=== PATIENT | male | born 1995 | race Caucasian/White ===

== ENCOUNTER 2020-05-12 03:00 | Emergency (ER) | payer MEDICAID ==
[~2020-05-12] VITALS: Ht 177.8 cm; Wt 156.5 kg
[2020-05-12 03:05] VITALS: BP 150/100
--- NOTE | 2020-05-12 03:05 | NUR ---
TO BED VIA WHEEL CHAIR
--- NOTE | 2020-05-12 03:20 | NUR ---
CHEIKH SOUZA AT BEDSIDE FOR MEDICAL EVALUATION.
[2020-05-12] MEDS ORDERED: NACL 0.9% 500 ML IV ONE (03:25)
[2020-05-12] MEDS ORDERED: MORPHINE SULFATE 2 MG/ML SYR IM/IVP ONE (03:25)
--- NOTE | 2020-05-12 03:25 | NUR ---
PT TAKEN TO XRAY BY [employer] VIA WHEELCHAIR.
--- NOTE | 2020-05-12 03:34 | NUR ---
Pt returned from Radiology via w/c.
[2020-05-12] MEDS ORDERED: KETAMINE 10 MG/ML UD SYR **ER IVP ONE (03:35)
[2020-05-12] MEDS ORDERED: MIDAZOLAM 2 MG/2 ML VIAL IVP ONE (03:35)
[2020-05-12] MEDS ORDERED: KETAMINE 500 MG/5 ML VIAL ONE (03:57)
--- NOTE | 2020-05-12 04:27 | NUR ---
KETAMINE AND MIDAZOLAM ADMINISTERED BY ER MD FOR CONSCIOUS SEDATION.
--- NOTE | 2020-05-12 04:32 | NUR ---
CONSCIOUS SEDATION PROCEDURE FOR LEFT SHOULDER STARTED
--- NOTE | 2020-05-12 04:40 | NUR ---
SLING APPLIED TO LEFT ARM BY EMT.
--- NOTE | 2020-05-12 04:44 | NUR ---
[employer]IS[employer] PRODUCTION SPECIALIST AT BEDSIDE FOR XRAY VERIFICATION.
--- NOTE | 2020-05-12 05:06 | NUR ---
PT IS AOX4 AND ABLE TO ANSWER ALL QUESTIONS. PT IS BACK TO BASELINE RST SCORE.
[2020-05-12 05:43] VITALS: BP 133/79
--- NOTE | 2020-05-12 05:43 | NUR ---
IV removed, catheter intact and site benign. Applied folded 4x4 gauze and tape to stop bleeding.
--- NOTE | 2020-05-12 05:48 | NUR ---
PROVIDED PT WITH SHOULDER SLING FOR PT'S LEFT SHOULDER. CHECKED PMSC'S BEFORE AND AFTER SLING WAS APPLIED WITHOUT INCIDENT.
== END 2020-05-12 05:43 | disposition home or self-care (01) ==
LOC: MED 03:00
DX: S43.005A Unspecified dislocation of left shoulder joint, initial encounter (principal); X58.XXXA Exposure to other specified factors, initial encounter; Y93.89 Activity, other specified; Y92.89 Other specified places as the place of occurrence of the external cause; Y99.8 Other external cause status
CPT/HCPCS: 23650; 73030; 96361; 96374; 99152; 99285; J2250; J2270; J7030

== ENCOUNTER 2020-06-22 09:49 | Emergency (ER) | payer MEDICAID ==
[~2020-06-22] VITALS: Ht 177.8 cm; Wt 156.5 kg
[2020-06-22 09:52] VITALS: BP 99/59
--- NOTE | 2020-06-22 10:04 | NUR ---
24 Y/O MALE C/O LEFT SIDED CHEST PRESSURE X3 DAYS. PATIENT DENIES ANY DRUG OR ALCOHOL OR CAFFEINE USE. PAIN IS NONRADIATING, 5/10 DULL/PRESSURE PAIN. STATES HE ALSO HAS MILD SOB SECONDARY TO CHEST PAIN. DENIES ANY COUGH/FEVER/N/V. AMBULATORY. GCS 15 NO PMH NKDA
--- NOTE | 2020-06-22 10:19 | NUR ---
ERMD AT BEDSIDE
[2020-06-22] MEDS ORDERED: ACETAMINOPHEN 325 MG TAB PO ONE (10:20)
--- NOTE | 2020-06-22 10:45 | NUR ---
RAD AT BEDSIDE
[2020-06-22] MEDS ORDERED: ACET-2619 PO (12:14)
[2020-06-22] MEDS ORDERED: LIDO5TDM59 TP (12:14)
[2020-06-22 12:33] VITALS: BP 125/68
--- NOTE | 2020-06-22 12:33 | NUR ---
Patient discharged with v/s stable. Written and verbal after care instructions given and explained. Patient alert, oriented and verbalized understanding of instructions. Ambulatory with steady gait. All questions addressed prior to discharge. ID band removed. Patient advised to follow up with PMD. Rx of LIDOCAINE, TYLENOL given. Patient educated on indication of medication including possible reaction and side effects. Opportunity to ask questions provided and answered.
== END 2020-06-22 12:33 | disposition home or self-care (01) ==
LOC: MED 09:49
DX: R07.9 Chest pain, unspecified (principal)
CPT/HCPCS: 71045; 93005; 99283

== ENCOUNTER 2020-12-27 21:56 | Emergency (ER) | payer MEDICAID ==
[~2020-12-27] VITALS: Ht 177.8 cm; Wt 165.6 kg
[~2020-12-27 21:56] MED LIST: ACET-2619 PO; LIDO5TDM59 TP
[2020-12-27 22:10] VITALS: BP 154/66
--- NOTE | 2020-12-27 22:13 | NUR ---
TO LOBBY A/W BED AMBULATORY
--- NOTE | 2020-12-28 | NUR ---
PT AMBULATED UNASSISTED TO ER BED 04 WITH STEADY AND EVEN GAIT
--- NOTE | 2020-12-28 00:01 | NUR ---
Prachi bingham in [facility] - 12/28/20 at 0001 by CHELSEA PT TAKEN TO BED 4
--- NOTE | 2020-12-28 00:09 | NUR ---
Dr. Cisse examining patient.
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
--- NOTE | 2020-12-28 00:20 | NUR ---
Lab at bedside
[2020-12-28 00:35] LABS: BASOPHILS % (AUTO) 0.5 % (0.0-2.0); EOSINOPHILS # (AUTO) 0.2 K/uL (0-0.4); EOSINOPHILS % (AUTO) 1.6 % (0.0-4.0); HEMATOCRIT 47.2 % (36-52); HEMOGLOBIN 15.7 g/dL (12.0-18.0); LYMPHOCYTES # (AUTO) 2.5 K/uL (2.0-11.5); LYMPHOCYTES % (AUTO) 26.1 % (20.5-51.1); MEAN CORPUSCULAR HEMOGLOBIN 25 pg (27-31); MEAN CORPUSCULAR HGB CONC 33 g/dL (33-37); MEAN CORPUSCULAR VOLUME 75.9 fL (80-94); MONOCYTES # (AUTO) 0.6 K/uL (0.8-1.0); MONOCYTES % (AUTO) 6.2 % (1.7-9.3); NEUTROPHILS # (AUTO) 6.2 K/uL (1.8-7.7); NEUTROPHILS % (AUTO) 65.6 % (42.2-75.2); PLATELET COUNT (AUTO) 305 K/uL (140-450); RED BLOOD CELL COUNT(AUTO) 6.22 MIL/uL (4.20-6.10); WHITE BLOOD COUNT (AUTO) 9.5 K/uL (4.8-10.8)
[2020-12-28 00:48] VITALS: BP 147/66
[2020-12-28 00:54] LABS: ANION GAP 15.7 (8-16); CARBON DIOXIDE 23.3 mmol/L (21-32); CREATININE 1.1 mg/dL (0.6-1.3); TOTAL BILIRUBIN 0.2 mg/dL (0.0-1.0)
[2020-12-28] MEDS ORDERED: ALPR0.5T2 PO (01:02)
== END 2020-12-28 01:19 | disposition home or self-care (01) ==
LOC: MED 21:56
DX: F41.0 Panic disorder [episodic paroxysmal anxiety] (principal); R20.0 Anesthesia of skin; Z79.899 Other long term (current) drug therapy
CPT/HCPCS: 36415; 80053; 83735; 85025; 99283

== ENCOUNTER 2021-08-03 22:41 | Emergency (ER) | payer MEDICAID ==
[~2021-08-03] VITALS: Ht 180.3 cm; Wt 164.7 kg
[~2021-08-03 22:41] MED LIST changes: +ALPR0.5T2 PO
[2021-08-03 23:28] VITALS: BP 129/92
[2021-08-04 00:13] LABS: APPEARANCE,URINE CLOUDY (CLEAR); BILIRUBIN,URINE NEGATIVE (NEGATIVE); BLOOD, URINE 3+ (NEGATIVE); COLOR,URINE RED (YELLOW); LEUKOCYTE ESTERASE ,URINE NEGATIVE (NEGATIVE); NITRITE, URINE NEGATIVE (NEGATIVE); UGLUCOSE NEGATIVE (NEGATIVE)
[2021-08-04 00:23] LABS: RBC,URINE TOO NUMEROUS TO COUN /HPF (0-5); WBC,URINE 0-5 /HPF (0-5)
--- NOTE | 2021-08-04 00:48 | NUR ---
Dr. Rebolledo at bedside to exam patient.
[2021-08-04 01:42] VITALS: BP 132/66
[2021-08-04] MEDS ORDERED: SULF-58 PO (01:42)
--- NOTE | 2021-08-04 01:46 | NUR ---
d/c with VSS. d/c education given. opportunity to ask questions given and answered. rx of bactrim given.
== END 2021-08-04 01:46 | disposition home or self-care (01) ==
LOC: MED 22:41
DX: R31.9 Hematuria, unspecified (principal); I10 Essential (primary) hypertension; F41.9 Anxiety disorder, unspecified; Z98.890 Other specified postprocedural states; Z79.2 Long term (current) use of antibiotics
CPT/HCPCS: 36415; 81001; 87086; 99283